=== PATIENT | female | born 1935 | race Caucasian/White ===

== ENCOUNTER → 2020-03-31 | Outpatient (CLI) | payer MEDICARE ==
[~2020-03-31] MED LIST: CYCL10 PO; DIAZ5 PO; HYDACE5 PO; IBUP800 PO; OMEG1CAP30 PO; ONDA4ODT MM
== END | disposition home or self-care (01) ==
LOC: PLD 09:01 → LAB SHORT 09:01
DX: D48.5 Neoplasm of uncertain behavior of skin (principal)
CPT/HCPCS: 88305

== ENCOUNTER 2023-01-31 12:24 | Day surgery (SDC) | payer MEDICARE ==
[~2023-01-31] VITALS: Ht 157.5 cm; Wt 81.8 kg
[~2023-01-31 12:24] MED LIST changes: +CLOP75 PO; +LOSA50 PO; +Loratadine10 MG PO; +OMEP20ER PO; +OXAYDO5 M1 PO; +OXYB5 PO
[2023-01-31 13:11] VITALS: BP 158/67
[2023-01-31 15:44] VITALS: BP 162/73
[2023-01-31 15:45] VITALS: BP 155/67
[2023-01-31 16:00] VITALS: BP 161/78
[2023-01-31 16:15] VITALS: BP 156/72
--- NOTE | 2023-01-31 17:00 | NUR ---
Patient up to Ambulate independently. Gait steady. Andra Paws warming gown applied. Discharge instructions reviewed with patient. Patient verbalizes understanding. Copy given to patient to take home. History, Chart, Medications and Allergies reviewed before start of procedure.Patient States Post-Procedure ride home has been arranged. Discharged via wheelchair to private car for ride home.
== END 2023-01-31 17:03 | disposition home or self-care (01) ==
LOC: ORSCMMR 12:24
PROVIDERS: Orthopaedic Surgery
PROC: 0PSJ04Z Reposition Left Radius with Internal Fixation Device, Open Approach (ICD-10-PCS; principal; 2023-01-31 13:30)
DX: S52.572A Other intraarticular fracture of lower end of left radius, initial encounter for closed fracture (principal); I10 Essential (primary) hypertension; Z87.891 Personal history of nicotine dependence; Z79.899 Other long term (current) drug therapy
CPT/HCPCS: C1713; J0690; J1100; J1885; J2405; J2704; J3010; J7120

== ENCOUNTER 2023-06-15 09:44 | Day surgery (SDC) | payer MEDICARE ==
[~2023-06-15 09:44] MED LIST changes: +TRAM50 PO; +VALIUM513 PO
[2023-06-18] MEDS ORDERED: ASPI81CH PO (06:19)
== END 2023-07-03 22:52 | disposition home or self-care (01) ==
LOC: MOI US 09:44
DX: C50.312 Malignant neoplasm of lower-inner quadrant of left female breast (principal)
CPT/HCPCS: 19285; 77065; A4648

== ENCOUNTER 2023-06-18 06:03 | Day surgery (SDC) | payer MEDICARE ==
[2023-06-18] VITALS (8 sets, daily range): BP systolic 134–165; BP diastolic 62–82
[~2023-06-18] VITALS: Ht 160 cm; Wt 83.7 kg
[2023-06-18] MEDS ORDERED: ASPI81CH PO (06:19)
--- NOTE | 2023-06-18 06:59 | NUR ---
Ambulatory in Day Surgery. History, Chart, Medications and Allergies reviewed before start of procedure. Lungs clear T/O to Auscultation. Patient confirms NPO status and agrees with scheduled surgery. Pre-Op teaching done. Pt verbalizes understanding. Patient States Post-Procedure ride home has been arranged. PT BELONGINGS ARE TAKEN WITH DAUGHTER FOR SAFEKEEPING.
--- NOTE | 2023-06-18 09:41 | NUR ---
DISCHARGE NOTE PT A&OX4, BREATHING RA, VSS, NO COMPLAINTS, PT EAGER TO DISCHARGE TO HOME. PT NOTICED ELONGATED BRUISE TO L UPPER ARM UPON GETTING DRESSED- IT DID NOT APPEAR TO BE SWOLLEN AND WAS NOT OPEN- PT ADVISED TO MONITOR AND CALL OFFICE IF THERE ARE COCNERNS. PT DRESSINGS TO SURGICAL SITE ARE CDI, MINIMAL BRUISING TO INCISION AREA. Discharge instructions reviewed with patient. Patient verbalizes understanding. Copy given to patient to take home.PT UP TO RESTROOM AND VOIDED C RN SBA. Discharged via wheelchair to private car for ride home.
== END 2023-06-18 09:35 | disposition home or self-care (01) ==
LOC: ORSCMMR 06:03 → ORD 07:30 → ORSCMMR 07:30
PROVIDERS: Surgery
PROC: 0HBU0ZZ Excision of Left Breast, Open Approach (ICD-10-PCS; principal; 2023-06-18 07:30)
DX: C50.312 Malignant neoplasm of lower-inner quadrant of left female breast (principal); Z17.0 Estrogen receptor positive status [ER+]; E78.5 Hyperlipidemia, unspecified; I10 Essential (primary) hypertension; Z79.82 Long term (current) use of aspirin; Z79.899 Other long term (current) drug therapy; Z87.891 Personal history of nicotine dependence
CPT/HCPCS: 76098; 88305; 88307; J0690; J1100; J2405; J2704; J3010; J7120

== ENCOUNTER 2023-10-15 10:21 | Emergency (ER) | payer MEDICARE ==
[~2023-10-15] VITALS: Ht 160 cm; Wt 77.1 kg
[~2023-10-15 10:21] MED LIST changes: +ASPI81CH PO
[2023-10-15 12:45] LABS: BASOPHILS ABSOLUTE AUTO 0.05 K/mm3 (0.00-0.23); BASOPHILS PERCENT AUTO 1 % (0-2); EOSINOPHILS ABSOLUTE AUTO 0.21 K/mm3 (0.00-0.68); EOSINOPHILS PERCENT AUTO 3 % (0-6); Hematocrit 42.9 % (33.0-51.0); Hemoglobin 14.1 g/dL (11.5-16.0); IMMATURE GRAN ABSOLUTE AUTO 0.01 K/mm3 (0.00-0.10); IMMATURE GRAN PERCENT AUTO 0 % (0-1); LYMPHOCYTES ABSOLUTE AUTO 1.81 K/mm3 (0.84-5.20); LYMPHOCYTES PERCENT AUTO 25 % (21-46); MONOCYTES ABSOLUTE AUTO 0.61 K/mm3 (0.16-1.47); MONOCYTES PERCENT AUTO 9 % (4-13); Mean Corpuscular HGB 31.2 pg (26.0-34.0); Mean Corpuscular HGB Conc 32.9 g/dL (31.5-36.5); Mean Corpuscular Volume 95 fL (80-100); Mean Platelet Volume 9.2 fL (9.1-12.4); NEUTROPHILS ABSOLUTE AUTO 4.44 K/mm3 (1.96-9.15); NEUTROPHILS PERCENT AUTO 62 % (41-73); Platelet Count 205 K/mm3 (150-400); RDW Coefficient Variation 13.2 % (11.7-14.2); Red Blood Cell Count 4.52 M/mm3 (3.80-5.20); White Blood Cell Count 7.13 K/mm3 (4.00-11.30)
[2023-10-15 13:21] LABS: Bun/Creatinine Ratio 40.1 (12.0-20.0); Calcium, Blood 9.3 mg/dL (8.5-10.1); Creatinine, Blood 0.57 mg/dL (0.40-1.00); Potassium, Blood 4.1 mmol/L (3.5-5.5)
[2023-10-15 15:00] VITALS: BP 164/54
== END 2023-10-15 15:35 | disposition home or self-care (01) ==
LOC: ER 10:21
PROVIDERS: Student in an Organized Health Care Education/Training Program
DX: H53.2 Diplopia (principal); I10 Essential (primary) hypertension; Z79.82 Long term (current) use of aspirin; Z79.899 Other long term (current) drug therapy; Z88.5 Allergy status to narcotic agent; Z88.8 Allergy status to other drugs, medicaments and biological substances
CPT/HCPCS: 70450; 70551; 80048; 83036; 85025; 93005; 93010; 93880; 99284-25

== ENCOUNTER → 2025-06-15 | Outpatient (CLI) | payer MEDICARE | LOC: LAB SHORT 13:54 → LAB 13:54 | DX: N39.0 Urinary tract infection, site not specified (principal) | CPT/HCPCS: 87077; 87086; 87186 ==